=== PATIENT | male | born 1985 | race Caucasian/White ===

== ENCOUNTER 2017-05-22 05:58 | Emergency (ER) | payer SELFPAY ==
[2017-05-22 06:20] LABS: #Basophils 0.1 thou/uL (0.0-0.2); #Eosinphils 0.2 thou/uL (0.0-0.7); #Lymphocytes 2.8 thou/uL (1.20-3.40); #Monocytes 0.7 thou/uL (0.11-0.59); #Neutrophils 6.9 thou/uL (1.40-6.50); %Basophils 0.8 % (0.0-1.0); %Lymphocytes 25.9 % (21.0-51.0); %Monocytes 6.5 % (0.0-10.0); %Neutrophils 64.9 % (42.0-75.0); Hemoglobin 16.1 g/dL (14.0-18.0); Mean Corpuscular HGB CONC 34.7 g/dL (32.0-36.0); Mean Corpuscular Hemoglobin 30.6 pg (27.0-31.0); Mean Corpuscular Volume 88.1 fl (80.0-94.0); Mean Platelet Volume 10.5 fL (7.4-10.4); Platelet Count 223 thou/uL (130-400); RBC Distribution Width 10.6 % (11.5-14.5); Red Blood Cell (RBC) Count 5.26 mill/uL (4.70-6.10); White Blood Cell (WBC) Count 10.7 thou/uL (4.8-10.8)
[2017-05-22 06:35] LABS: ALT (SGPT) 19 U/L (8-55); AST (SGOT) 18 U/L (5-34); Albumin 4.4 g/dL (3.5-5.0); Alkaline Phosphatase 109 U/L (40-150); Anion Gap 14 mmol/L (10-20); BUN (Urea Nitrogen) 7 mg/dL (8.9-20.6); Bilirubin, Total 0.5 mg/dL (0.2-1.2); Calc. Creatinine Clearance 0 mL/min (70-130); Calcium 9.2 mg/dL (7.8-10.44); Carbon Dioxide 22 mmol/L (22-29); Chloride 104 mmol/L (98-107); Estimated GFR-MDRD 81; Globulin 3.3 g/dL (2.4-3.5); Glucose 98 mg/dL (70-105); Potassium 3.6 mmol/L (3.5-5.1); Protein, Total 7.7 g/dL (6.0-8.3); Sodium 136 mmol/L (136-145)
[2017-05-22 06:38] LABS: Acetaminophen Less than 6.0 mcg/mL (10.0-30.0); Alcohol Less than 10 mg/dL (Less than 10); Salicylate Less than 8.0 mg/dL (15.0-30.0)
[2017-05-22 06:43] LABS: Amphetamine Not Detected (NotDetected); Barbiturates Screen Not Detected (NotDetected); Benzodiazepine Screen Not Detected (NotDetected); Cocaine Metabolite Screen Not Detected (NotDetected); Medtox Control Line Valid? VALID (VALID); Methadone Not Detected (NotDetected); Methamphetamine Not Detected (NotDetected); Opiate Screen Not Detected (NotDetected); Oxycodone Screen Not Detected (NotDetected); Phencyclidine (PCP) Not Detected (NotDetected); THC/Cannabinoid Screen Detected (NotDetected); Tricyclic Screen Not Detected (NotDetected)
[2017-05-22] MEDS ORDERED: Lorazepam 1 MG TAB ONE (07:42)
== END 2017-05-22 13:13 | disposition psychiatric hospital, planned readmission (93) ==
LOC: NAV ERS 05:58
DX: R45.851 Suicidal ideations (principal); I10 Essential (primary) hypertension; F41.9 Anxiety disorder, unspecified; F31.9 Bipolar disorder, unspecified; F17.210 Nicotine dependence, cigarettes, uncomplicated
CPT/HCPCS: 80053; 80306; 80307; 84443; 85025; 99285